=== PATIENT | male | born 1960 | race Caucasian/White ===

== ENCOUNTER 2019-02-22 07:24 | Emergency (ER) | payer BC ==
[2019-02-22 07:29] VITALS: BP 175/82
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
== END 2019-02-22 08:22 | disposition home or self-care (01) ==
LOC: ER 07:24
DX: Z48.02 Encounter for removal of sutures (principal); Z91.030 Bee allergy status
CPT/HCPCS: 99281